=== PATIENT | female | born 1945 | race African-American/Black ===

== ENCOUNTER 2018-05-05 10:51 | Observation (INO) | payer MEDICARE, MEDICAID ==
[2018-05-05] MEDS ORDERED: Diazepam 5 MG TAB ONE (11:56)
[2018-05-05 12:29] LABS: #Eosinphils 0.1 thou/uL (0.0-0.7); #Lymphocytes 1.3 thou/uL (1.20-3.40); #Monocytes 0.4 thou/uL (0.11-0.59); #Neutrophils 3.9 thou/uL (1.40-6.50); %Basophils 0.8 % (0.0-1.0); %Eosinophils 1.5 % (0.0-10.0); %Lymphocytes 22.7 % (21.0-51.0); %Monocytes 7.4 % (0.0-10.0); %Neutrophils 67.6 % (42.0-75.0); Hemoglobin 14.1 g/dL (12.0-16.0); Mean Corpuscular Hemoglobin 31.2 pg (27.0-31.0); Mean Corpuscular Volume 91.9 fL (78.0-98.0); Mean Platelet Volume 7.9 fL (7.4-10.4); Platelet Count 210 thou/uL (130-400); RBC Distribution Width 11.7 % (11.5-14.5); Red Blood Cell (RBC) Count 4.52 mill/uL (4.20-5.40); White Blood Cell (WBC) Count 5.8 thou/uL (4.8-10.8)
[2018-05-05 12:44] LABS: ALT (SGPT) 11 U/L (8-55); AST (SGOT) 13 U/L (5-34); Albumin 4.4 g/dL (3.4-4.8); Alkaline Phosphatase 69 U/L (40-150); Anion Gap 11 mmol/L (10-20); BUN (Urea Nitrogen) 12 mg/dL (9.8-20.1); Bilirubin, Total 0.6 mg/dL (0.2-1.2); Calc. Creatinine Clearance 0 mL/min (70-130); Calcium 9.5 mg/dL (7.8-10.44); Carbon Dioxide 28 mmol/L (23-31); Chloride 106 mmol/L (98-107); Estimated GFR-MDRD Greater than 90; Globulin 3.7 g/dL (2.4-3.5); Glucose 140 mg/dL (83-110); Magnesium 2.1 mg/dL (1.6-2.6); Potassium 3.5 mmol/L (3.5-5.1); Protein, Total 8.1 g/dL (6.0-8.3); Sodium 141 mmol/L (136-145)
[2018-05-05 12:46] LABS: CKMB 0.8 ng/mL (0-6.6); Troponin I Less than 0.010 ng/mL (< 0.028)
[2018-05-05] MEDS ORDERED: Acetaminophen 325 MG TAB PO PRN (18:10)
[2018-05-05] MEDS ORDERED: Nitroglycerin 0.4 MG TAB (25 Tab Bottle) PO PRN (18:11)
[2018-05-05] MEDS ORDERED: cloNIDine 0.1 MG TAB PO PRN (18:23)
[2018-05-05 18:28] LABS: Troponin I 0.015 ng/mL (< 0.028)
[2018-05-05 18:44] VITALS: BMI 33.9
[2018-05-05] MEDS ORDERED: Ondansetron HCl/PF 4 MG/2 ML Vial IVP PRN (18:56)
[2018-05-05] MEDS ORDERED: Ondansetron ODT 4 MG TAB SL PRN (18:56)
[2018-05-05 22:05] LABS: Troponin I Less than 0.010 ng/mL (< 0.028)
[2018-05-05 23:09] LABS: Bilirubin Negative (Negative); Blood, Urine Negative (Negative); Clarity CLEAR (Clear); Glucose, Urine (Dipstick) Negative (Negative); Leukocyte Moderate (Negative); Nitrite Negative (Negative); Protein, Urine (Dipstick) Negative (Neg-Trace); Specific Gravity, Urine 1.024 (1.002-1.036); pH, Urine 6.5 (5.0-9.0)
[2018-05-05 23:11] LABS: Bacteria/HPF None Seen HPF (None Seen); Hyaline Casts/LPF 0-3 HYALINE CAST LPF (0-3 Hyaline); Pathc Cast-AUWi Flag 0.14 (0-2.49); Squamous Epithelial 0-3 HPF (0-3)
[2018-05-06 06:13] LABS: Cardiac Risk 4.6 (Less than 4.5)
--- NOTE | 2018-05-06 08:58 | RAD ---
TWO VIEWS CHEST: 05/05/18 HISTORY: Patient with drug reaction. PA and lateral views of the chest is obtained on 05/05/18. Comparison made to previous exam from 04/23/15. AP view chest demonstrates ectasia of the aorta. The lungs are well aerated. No evidence of active in trathoracic disease seen. no evidence of effusions, pneumonia or pneumothorax seen. IMPRESSION: Normal two views chest. POS: [facility]
--- NOTE | 2018-05-06 09:02 | HP ---
CHIEF COMPLAINT: Unusual reaction to drug. HISTORY OF PRESENT ILLNESS: Patient is a 72-year-old female who states she occasionally will smoke m alejandrajuana. Today, her nephew apparently gave her a "blunt" that she thought was weed. She took one i nhalation and subsequently had a sensation of feeling extremely worried, scared and paranoid and anxi ous. She states she has never felt anything like that before. She called for an ambulance and start ed feeling better as soon as she was reassured the ambulance was coming and even more so when she saw the ambulance in sight. She states that she was wrecked by her symptoms that she was having a diffi cult time moving. She reports she is actually feeling much better now and is completely back to her baseline. The only other history of consequence is the patient states that 4 days ago, she was outsi de. She started feeling somewhat dizzy with some nausea and headache on the middle of the afternoon. She subsequently went inside and called off in front of a fan and felt better. REVIEW OF SYSTEMS: Notable for a 30-pound weight loss, although the patient is dieting and this has been deliberate. She did report that she had some numbness and tingling in her fingers with this par ticular episode and she has also had some mild urinary incontinence over the last month or so. PAST MEDICAL HISTORY: Notable for cataracts, glaucoma, hyperlipidemia, and hypertension. PAST SURGICAL HISTORY: Hysterectomy and left leg surgery. FAMILY HISTORY: Father at 68 with [place]. Her mother at 72 with renal failure. She has a sis ter who is with cardiac and renal disease and another with cardiac issues. SOCIAL HISTORY: Patient uses spit tobaccos and has done so for 20 years. She admits to some social alcohol, but seldom. She does also admit to occasional marijuana use. She is . ALLERGIES: None. MEDICATIONS: Travatan eyedrops to the left eye. PHYSICAL EXAMINATION: VITAL SIGNS: Most recent set of vitals, BP 175/89, pulse 57, respirations 15, temperature 98.4, O2 s at 97% on room air. GENERAL APPEARANCE: Age appropriate female. She is in no distress. She is awake, alert, oriented, pleasant, cooperative. HEENT: PERRL. No OP lesions. NECK: Supple and symmetric without lymphadenopathy, JVD, or carotid bruits. CARDIOVASCULAR: Regular rate and rhythm without murmurs, gallops or rubs. LUNGS: Clear to auscultation bilaterally with good chest wall expansion, air exchange. ABDOMEN: Soft, nontender, nondistended, positive bowel sounds, no masses, no organomegaly. EXTREMITIES: Warm and dry. NEUROLOGIC: Patient appears to have no focal deficits and is completely intact. LABORATORY DATA: White blood cell count 5.8, hemoglobin 14.1, platelets 210. Sodium is 141, potassi um 3.5, chloride 106, CO2 of 28, BUN 12, creatinine 0.68, glucose 140, calcium 9.5, magnesium 2.1, T 13, ALT 11. Troponin less than 0.01 with a repeat in two and a half hours at 0.02. BNP 11.6, albu min 4.4, globulin 3.7. EKG: Patient had an EKG performed in the emergency department initially when she was reportedly feel ing more symptomatic and had some very modest nonspecific lateral T-wave changes and her second follo wup EKG when she was completely back to her baseline, the T waves were back to normal and were consis tent with the normal that she had on a previous EKG. ASSESSMENT AND PLAN: 1. Drug reaction. Patient believes that she was only smoking marijuana, although it is clear that t hese can be laced with anything and it is possible she was actually exposed to something she had not been exposed to previously. We will check a drug screen to see if we can elucidate what that might b e if anything. In the meantime, we will keep her on telemetry. 2. Dynamic T-wave changes which appear to be fairly minimal. Her troponin did bump although it is s till well within the normal range. We will recheck her troponins and keep her on the telemetry. Giv en her risk factors, we will anticipate stress test tomorrow. 3. Urinary incontinence. We will check UA. 4. Glaucoma. Continue the Travatan eyedrops. 5. Hypertension. Patient has a history of hypertension, but is on no meds. Her pressure was lower when she initially presented, but is up a bit. May need to initiate some antihypertensives. 6. Hyperlipidemia. We will check a fasting lipid panel in the morning.
[2018-05-06 12:11] VITALS: BP 169/77; TEMP 98.6
--- NOTE | 2018-05-06 12:52 | NM ---
MYOCARDIAL PERFUSION SCAN: Date: 05/06/18 PROVIDED CLINICAL HISTORY: Chest pain. RADIOPHARMACEUTICAL: 31.7 mCi technetium-99m labeled sestamibi IV at stress. 9 mCi technetium-99m labeled sestamibi IV at rest. FINDINGS: There is normal, homogeneous distribution of radiotracer throughout the left ventricular myocardium a t both stress and rest. Gated data demonstrate normal myocardial wall motion and thickening with calc ulated LVEF of 67%. TID is 1.07. IMPRESSION: 1. No scintigraphic evidence for ischemia. 2. LVEF 67%. POS: [facility]
--- NOTE | 2018-05-06 18:00 | DIS ---
DATE OF ADMISSION: 05/05/2018 DATE OF DISCHARGE: 05/06/2018 DISCHARGE DIAGNOSES: 1. Adverse recreational drug reaction. 2. Abnormal T-wave inversion on EKG. 3. Dyslipidemia. 4. History of hypertension. HOSPITAL COURSE: This patient is a 72-year-old female who does smoke marijuana from time to time. T he patient reports that a family member who does not smoke marijuana was around some people who do an d somehow they left marijuana cigarette in his car in his possession and gave it to her knowing that she uses such. When she attempted to smoke it she immediately had some type of reaction to it causin g her to have anxiety, some chest pressure and some shaking. She immediately asked him to call an am bulance. They did and brought the patient to the hospital. Of note, the patient reported she starte d feeling better as soon as she knew the ambulance was on the way. In the emergency department, the patient's workup was largely negative, but she did have an EKG when she was expressing some type of s ymptoms and there was some evidence of T-wave inversion. It was fairly mild. Subsequently, however, when she reported her symptoms resolved, a repeat EKG was performed which did not have any evidence of T-wave inversion that appeared to be back to her prior baseline EKG. HOSPITAL COURSE: The patient was subsequently admitted to the observation status. She was kept on t elemetry monitoring and had serial troponins which were all negative. Urinalysis showed moderate jessica kocyte esterase with 7-10 white cells, but was otherwise negative. Chemistry panel came back with tr iglycerides 103, cholesterol 222, LDL 153 and HDL 48. The patient had no further symptoms and underw ent a stress test with nuclear medicine revealing no evidence for ischemia and ejection fraction of 6 7%. With that, the patient was felt to be stable for discharge to home. DISPOSITION: The patient is discharged to home on a heart healthy diet. She is to have no new medic ations. She is to have a regular activity level. She was encouraged to follow up with her PCP. She says she is now committed to stopping tobacco products and drugs. She is encouraged to follow up in the emergency department should she have any problems prior to her follow up. She understands that she will need to address with her PCP her blood pressure and cholesterol.
== END 2018-05-06 13:18 | disposition home or self-care (01) ==
LOC: ERS 10:51 → 2SW 18:29
PROVIDERS: ADMIT Internal Medicine; ATTEND Internal Medicine
DX: T40.7X5A Adverse effect of cannabis (derivatives), initial encounter (principal); R07.89 Other chest pain; F41.9 Anxiety disorder, unspecified; E78.5 Hyperlipidemia, unspecified; I10 Essential (primary) hypertension; H40.9 Unspecified glaucoma
CPT/HCPCS: 71046; 78452; 80053; 80061; 82553; 83735; 83880; 84484 ×2; 85025; 93005; 93017; 99285; A9500; G0378; 36415; 81003; 81015; A4216

== ENCOUNTER 2018-06-13 15:03 | Outpatient (CLI) | payer MEDICARE, MEDICAID | END 2018-06-13 15:04 | disposition home or self-care (01) | LOC: BICMAMMO 15:03 | PROVIDERS: ATTEND Family Medicine | DX: Z12.31 Encounter for screening mammogram for malignant neoplasm of breast (principal); R92.1 Mammographic calcification found on diagnostic imaging of breast | CPT/HCPCS: 77063; 77067 ==

== ENCOUNTER 2020-06-18 08:14 | Outpatient (CLI) | payer MEDICARE, MEDICAID ==
--- NOTE | 2020-06-18 09:18 | MMO ---
Bilateral MAMMO Bilat Screen [facility]. CLINICAL HISTORY: Patient is 74 years old and is seen for screening. The patient has no family history of breast cancer. The patient has no personal history of cancer. VIEWS: The views performed were: bilateral craniocaudal with tomosynthesis and bilateral mediolateral oblique with tomosynthesis. FILMS COMPARED: The present examination has been compared to prior imaging studies performed at [facility] on 12/08/2006, 07/28/2009, 11/28/2016 and 06/13/2018. This study has been interpreted with the assistance of computer-aided detection. MAMMOGRAM FINDINGS: There are scattered fibroglandular densities. There are stable benign appearing calcifications seen in both breasts. There are no suspicious masses, suspicious calcifications, or new areas of architectural distortion. IMPRESSION: THERE IS NO MAMMOGRAPHIC EVIDENCE OF MALIGNANCY. A ROUTINE FOLLOW-UP MAMMOGRAM IN 1 YEAR IS RECOMMENDED. THE RESULTS OF THIS EXAM WERE SENT TO THE PATIENT. ACR BI-RADS Category 2 - Benign finding MAMMOGRAPHY NOTE: 1. A negative mammogram report should not delay a biopsy if a dominant of clinically suspicious mass is present. 2. Approximately 10% to 15% of breast cancers are not detected by mammography. 3. Adenosis and dense breasts may obscure an underlying neoplasm. Reported by: ESTHELA KENNEDY MD Electonically Signed: [id number]
--- NOTE | 2020-06-18 09:28 | BD ---
DEXA BONE DENSITY STUDY: HISTORY: Postmenopausal. FINDINGS: Lumbar Spine: BMD (g/cm2) L1 1.068 T-Score: +0.7 L2 1.047 T-Score: +0.2 L3 1.104 T-Score: +0.2 L4 1.055 T-Score: -0.1 L1-L4 1.069 T-Score: +0.2 Femoral Neck: 0.696 T-Score: -1.4 Total Femur: 1.023 T-Score: +0.7 Impression: 1. Normal bone mineral density of the lumbar spine. Osteopenia of the left femoral neck. 2. Ten-year fracture risk for a major osteoporotic fracture is 4.3% and hip fracture 0.7%. Fracture probabilities were calculated for an untreated patient. POS: [facility]
== END 2020-06-18 08:15 | disposition home or self-care (01) ==
LOC: BICMAMMO 08:14
PROVIDERS: ATTEND Family Medicine
DX: Z12.31 Encounter for screening mammogram for malignant neoplasm of breast (principal); Z13.820 Encounter for screening for osteoporosis; M85.852 Other specified disorders of bone density and structure, left thigh
CPT/HCPCS: 77063; 77067; 77080

== ENCOUNTER 2020-12-12 12:46 | Emergency (ER) | payer MEDICARE ==
--- NOTE | 2020-12-12 13:43 | RAD ---
XR Knee Lt 4 View STANDARD History: Fall Comparison: None Findings: small high-grade circumferential osteophyte formation. Small joint effusion likely reactive . No acute displaced fracture or malalignment. Moderate genu valgus with lateral greater than medial joint space height loss. Central articular surf elbert osteophytes. Impression: High-grade tricompartmental degenerative changes, greatest in the lateral compartment. No acute displaced fracture.
== END 2020-12-12 14:20 | disposition home or self-care (01) ==
LOC: ERS 12:46
DX: M25.462 Effusion, left knee (principal); I10 Essential (primary) hypertension; F17.220 Nicotine dependence, chewing tobacco, uncomplicated; W00.0XXA Fall on same level due to ice and snow, initial encounter

== ENCOUNTER 2021-06-21 09:43 | Outpatient (CLI) | payer MEDICARE, MEDICAID | END 2021-06-21 09:44 | disposition home or self-care (01) | LOC: BICMAMMO 09:43 | PROVIDERS: ATTEND Student in an Organized Health Care Education/Training Program | DX: Z12.31 Encounter for screening mammogram for malignant neoplasm of breast (principal) | CPT/HCPCS: 77063; 77067 ==

== ENCOUNTER 2022-07-08 11:19 | Outpatient (CLI) | payer OTHER | END 2022-07-08 11:20 | disposition home or self-care (01) | LOC: BICMAMMO 11:19 | PROVIDERS: ATTEND Student in an Organized Health Care Education/Training Program | DX: Z12.31 Encounter for screening mammogram for malignant neoplasm of breast (principal) | CPT/HCPCS: 77063; 77067 ==

== ENCOUNTER 2023-08-31 10:40 | Outpatient (CLI) | payer OTHER | END 2023-08-31 10:41 | disposition home or self-care (01) | LOC: BICMAMMO 10:40 | PROVIDERS: ATTEND Student in an Organized Health Care Education/Training Program | DX: Z12.31 Encounter for screening mammogram for malignant neoplasm of breast (principal) | CPT/HCPCS: 77063; 77067 ==

== ENCOUNTER 2024-09-12 13:46 | Outpatient (CLI) | payer OTHER | END 2024-09-12 13:47 | disposition home or self-care (01) | LOC: BICMAMMO 13:46 | PROVIDERS: ATTEND Surgery | DX: Z12.31 Encounter for screening mammogram for malignant neoplasm of breast (principal) | CPT/HCPCS: 77063; 77067 ==